=== PATIENT | male | born 1985 | race Caucasian/White ===

== ENCOUNTER 2019-06-26 10:52 | Emergency (ER) | payer SELFPAY ==
[2019-06-26 10:53] VITALS: BP 127/75; PULSE 53; RESP 18; TEMP 36.6; O2SAT 100; BMI 25.9
--- NOTE | 2019-06-26 11:15 | CT_ITS ---
STUDY: CT BRAIN WITHOUT CONTRAST REASON FOR EXAM: Male, 34 years old. Headache. RADIATION DOSAGE (If Supplied By Facility): CTDIvol = ( 44.99 ) mGy, DLP = ( 745.49 ) mGycm TECHNIQUE: Transaxial CT imaging of the brain was performed without administration of intravenous contrast material. Individualized dose optimization techniques were used for this CT. COMPARISON: No relevant priors. FINDINGS: Normal soft tissue structures. Normal calvarium. Normal size ventricles and extra-axial spaces for the patient's age. Normal white matter tracts of the cerebral hemispheres. Normal basal ganglia and thalami. Normal brainstem. Normal cerebellum. There is no intracranial hemorrhage. There are no findings of an acute ischemic infarction. Normal visualized paranasal sinuses. CT/Brain/Head without Contrast IMPRESSION: Normal unenhanced CT scan of the brain. Electronically Signed: Trevon Ruff MD at 12:12 EDT , Service support ,
--- NOTE | 2019-06-26 11:15 | ED.VIS.HA ---
History of Present Illness Chief Complaint: Headache Informant: Patient Onset: Yesterday - last PM Context: Sudden Timing: Intermittent, Lasts - seconds Quality: Sharp - stabbing Location: right parieto-occipital area Current Severity: Gone Maximum Severity: Severe Associated Symptoms: - - R earache. mild tearing right eye.. Negative for: Fever, Nausea, Vomiting, Sore Throat, Sinus Pressure, Numbness, Visual Changes, Blurred Vision, Photophobia Narrative: 34-year-old healthy male with some seasonal allergies presenting with sharp intermittent headache pain in the right parietal occipital area that he has never had before. He states gradual onset of the right earache last night, without any changes in his hearing, neck pain, or ear discharge. He has had some mild allergy symptoms lately but has not felt like he had a cold or any other illness. No recent injury. Then he started having sharp stabbing pains in his right parieto-occipital scalp/head. He felt like maybe he could manipulated with his hand when pushing on his scalp but is not sure. It was regular, like every minute for a lot of the night. This morning he took an Aleve, now the pain is drastically improved. He had a fairly normal exam in urgent care so they sent him to the ER because they thought that he needed a CAT scan. He has never had any symptoms like this before. Prior similar symptoms: No - Past Medical History (1) Seasonal allergies Status: Chronic Past Medical History - Allergies and Home Meds Allergies/Adverse Reactions: Allergies No Known Allergies Allergy (Verified 06/26/19 10:55) Primary Care Physician: NOT,DEFINED [NON-STAFF] - Lives: Spouse/ Significant Other Smoking Status: Never smoker Drugs: None Review of Systems General: Denies: Chills, Fever, Sweats Eyes: Denies: Visual changes - bilaterally, Diplopia ENT: Reports: Right ear pain, Rhinorrhea - off and on. Denies: Sore throat Cardiovascular: Denies: Chest pain, Palpitations Respiratory: Denies: Dyspnea, Cough, Dyspnea on exertion Gastrointestinal: Denies: Abdominal pain, Nausea, Vomiting, Diarrhea, Melena, Hematochezia Genitourinary: Denies: Dysuria, Hematuria, Frequency Musculoskeletal: Denies: Neck pain, Back pain, Extremity Pain Skin: Denies: Rash, Wounds Neurological: Reports: Headache. Denies: Weakness, Numbness Physical Exam Vital Signs/Narrative: Vital Signs Temp Pulse Resp BP Pulse Ox 06/26/19 10:53 97.9 F 53 L 18 127/75 H 100 Inital Vital Signs reviewed: Yes General: Well nourished, Well developed, - - NAD, well-appearing Head: NC, AT Eyes: Perrl, EOMI, - - nml conj bilat ENT: Moist mucous membranes, No rhinorrhea, TM's clear - and normal EAC bilat, no ear tenderness. Negative for: Nasal congestion, Sinus tenderness Neck: Supple - FROM, no discomfort w/ ranging neck, No Lymphadenopathy, No JVD, Nontender, No Meningismus Skin: Normal color, No rash, No Trauma Neuro: Alert, Oriented x3, Cranial nerves II-XII grossly intact, Normal Strength, Normal Sensation, Normal DTR, Normal Gait, - - nml FTN and HTS bilat Diagnostic/Tx/Re-eval Clinical Impression(s) from Imaging Studies Brain CT 06/26/19 11:15 IMPRESSION: Normal unenhanced CT scan of the brain. Electronically Signed: Trevon Ruff MD at 12:12 EDT , Service support , - Medical Decision Making Patient was agreeable to CT head, given he was having a new and unusual unilateral headache, although he does not have neurologic symptoms per se, it was negative. Some of his symptoms are consistent with cluster headache although it is not classic. I am not sure why he is having ear pain unless this is a upper cervical radiculopathy. He has no neck pain or problems moving that. Cluster headache is in the differential as is other primary headache syndromes. I will give him a prescription for Imitrex to use as needed in case it recurs. I put him on oxygen and he did feel little better. Given appropriate discharge instructions. ED Disposition - Plan for ED Patient: Disposition: Home or Assisted Living Diagnosis: Episodic paroxysmal hemicrania, not intractable Instructions: Headache, Cluster Prescriptions: Sumatriptan Succinate [Imitrex] 25 - 50 mg PO .X1 DAILY PRN #6 tab PRN Reason: Headache Prescription Printed Referrals: Doctor,Your [STAFF PHYSICIAN] - 3-5 Days if not improving
[2019-06-26 11:34] VITALS: O2SAT 97
[2019-06-26 13:02] VITALS: RESP 18
== END 2019-06-26 13:02 | disposition home or self-care (01) ==
PROVIDERS: Emergency Provider Emergency Medicine; Family Provider Family Medicine; PCP Family Medicine
DX: G44.039 Episodic paroxysmal hemicrania, not intractable (principal)
CPT/HCPCS: 70450; 99282